=== PATIENT | female | born 1970 | race Caucasian/White ===

== ENCOUNTER 2017-03-09 10:41 | Outpatient (CLI) | payer OTHER | END 2017-03-09 10:42 | LOC: LABRHC 10:41 | PROVIDERS: ATTEND Physician Assistant | DX: Z01.419 Encounter for gynecological examination (general) (routine) without abnormal findings (principal) | CPT/HCPCS: 88148; G0143 ==

== ENCOUNTER 2017-04-01 07:12 | Outpatient (CLI) | payer OTHER ==
[2017-04-01 07:40] LABS: BASOPHILS % 0.8 (0.0-1.5); EOSINOPHILS % 2.4 % (0.0-6.8); MEAN CORPUSCULAR HEMOGLOBIN 31.5 pg (28.0-34.0); MEAN CORPUSCULAR VOLUME 92.4 fl (80.0-100.0); MONOCYTES % 4.7 % (0.0-11.0); NEUTROPHILS # 3.2 # k/uL (1.4-7.7)
[2017-04-01 08:08] LABS: eGFR (African) > 60; eGFR (Non-African) > 60
== END 2017-04-01 10:04 ==
LOC: LAB 07:12
PROVIDERS: ATTEND Physician Assistant
DX: Z00.00 Encounter for general adult medical examination without abnormal findings (principal); Z82.49 Family history of ischemic heart disease and other diseases of the circulatory system
CPT/HCPCS: 36415; 80053; 80061; 84443; 85025